=== PATIENT | female | born 1960 | race Caucasian/White ===

== ENCOUNTER 2019-07-09 12:24 | Outpatient (RCR) | payer MEDICARE ==
[~2019-07-09] VITALS: Ht 165.1 cm; Wt 84.5 kg
[2019-07-09] MEDS ORDERED: VITA200028 PO (12:52)
[2019-07-09] MEDS ORDERED: MELA10CA PO (12:52)
[2019-07-09] MEDS ORDERED: LISI10TA4 PO (12:52)
[2019-07-09] MEDS ORDERED: PANT40TA3 PO (12:52)
[2019-07-09] MEDS ORDERED: MULTCAP PO (12:52)
[2019-07-09] MEDS ORDERED: METO25TA4 PO (12:52)
[2019-07-09] MEDS ORDERED: METF-839 PO (12:52)
[2019-07-09] MEDS ORDERED: ROSU20TA5 PO (12:52)
[2019-07-09] MEDS ORDERED: ASPI81TA85 PO (12:52)
[2019-07-09 13:44] VITALS: BP 120/76
[2019-07-09 13:45] VITALS: BP 120/76
[2019-07-09 13:52] VITALS: BP 120/76
--- NOTE | 2019-07-09 14:05 | CARECAPL ---
Assessment Account #s: Initial Assessment General Diagnoses: STEMI Date of event: Jun 09, 2019 Physician: Julio Summers Allergies: Coded Allergies: No Known Allergies (Verified , 12/19/04) Date Entered Program: Jul 09, 2019 Risk strat for cardiac event: Moderate Exercise Date: Jul 09, 2019 Assessment: Initial Assessment Stages of change: Contemplate Exercise Prescription Plan to build endurance and strength through a monitored exercise program and to be educated about the risks of cardiac disease Duration (Minutes) 30 - 60 minutes total exercise a day. 15 - 20 work intervals in minutes. PRN rest intervals in minutes. Functional Capacity Goal Sustained Metabolic Equivalent of a task (MET) goal of 2.5-3.5 for 15 minutes. Intensity: 3-Moderate Progression (METS) Increase by: .5 METS every: 2-3 sessions Angina with ex: No Target Heart Rate Rest +35-40 Resistance Training: Yes Weight (pounds): 1 Reps: 6-8 Medications Scheduled Aspirin (Aspir 81), 81 MG PO DAILY, (Reported) Ergocalciferol (Vitamin D2) (Vitamin D2), 2,000 UNIT PO DAILY, (Reported) Lisinopril (Lisinopril), 10 MG PO DAILY, (Reported) Melatonin (Melatonin), 10 MG PO QHS, (Reported) Metformin HCl (Metformin HCl), 500 MG PO BID, (Reported) Metoprolol Tartrate (Metoprolol Tartrate), 25 MG PO BID, (Reported) Multivitamin (Multivitamins), 1 CAP PO DAILY, (Reported) Pantoprazole Sodium (Pantoprazole Sodium), 40 MG PO DAILY, (Reported) Rosuvastatin Calcium (Rosuvastatin Calcium), 20 MG PO Q2D, (Reported) Current BP 120/76 Target Goals Individual exercise Rx (1) BP 140/90 or 130/80 if DM or CKD (1) Aerobic active 30+min 5 days per week (1) Nutrition Date: Jul 09, 2019 Assessment: Initial Assessment Stages of change: Contemplate Lipid- med/supplement Rosuvastatin Diabetes Diabetes: Yes (type II) HbA1c (%): 5.9 Diabetes medication Metformin Monitor Blood Sugar at home: No Weight Management Weight (lbs): 185 Height (inches): 65 Waist Circumference (Inches): 40 BMI: 30.8 Weight goal: 150 Special Diet: regular Vitamin/Supplements: Multivitamin Alcohol: special Diet Access Tool: Rate your plate Score: 55 Intervention Diet Class: Yes (will see this program) Target goal LDL-C<100 if triglycerides are >200 Non-HDL-C should be <130 (1) LDL-C<70 for high risk patients (4) HbA1c<7% (1) BMI<25 Waist cir<40in M/<35in F (1) Education Date: Jul 09, 2019 Assessment: Initial Assessment Learning Barriers: ready, learn Knowledge Test Score: 10 Stages of change: Preperation Quit: never smoked Intervention Referral to smoking cessation: No Individual education and couns: No Tobacco Adjunct: No Target Goals Complete cessation of tobacco use (1). Psychosocial Date: Jul 09, 2019 Assessment: Initial Assessment Psych Test (Initial/Discharge) Tool Used: Other Score: 9 Stages of change: Preperation Intervention Physician Consult: No Physician Referral: No Target Goal Assess presence or absence of depression using a valid screening tool (1). Maximize coping skills (2). Positive support system (2). Patient/Program Goal Preventative Medication: Yes Aspirin, Yes Beta blockade, Yes Statin/OTR lipid Lowering Fall Risk Assess: No Provider Assessment Provider Assessment: Proceed with rehab Klaudia Mcgraw RN Jul 09, 2019 14:05
[2019-07-12 12:59] VITALS: BP 146/80
[2019-07-12 13:40] VITALS: BP 180/90
[2019-07-12 14:13] VITALS: BP_SYST 146; BP_SYST 180; BP_DIAS 80; BP_DIAS 90
[2019-07-14 12:37] VITALS: BP 114/80
[2019-07-14 13:03] VITALS: BP 140/60
[2019-07-14 13:51] VITALS: BP 114/60
[2019-07-15 09:36] VITALS: BP 120/80
[2019-07-15 10:04] VITALS: BP 120/70
[2019-07-15 10:51] VITALS: BP 128/78
--- NOTE | 2019-07-16 13:42 | CARECAPL ---
General Allergies: Coded Allergies: No Known Allergies (Verified , 12/19/04) Exercise Prescription Duration (Minutes) 30 - 60 minutes total exercise a day. 15 - 20 work intervals in minutes. PRN rest intervals in minutes. Functional Capacity Goal Sustained Metabolic Equivalent of a task (MET) goal of for minutes. Progression (METS) Increase by: METS every: sessions Medications Scheduled Aspirin (Aspir 81), 81 MG PO DAILY, (Reported) Ergocalciferol (Vitamin D2) (Vitamin D2), 2,000 UNIT PO DAILY, (Reported) Lisinopril (Lisinopril), 10 MG PO DAILY, (Reported) Melatonin (Melatonin), 10 MG PO QHS, (Reported) Metformin HCl (Metformin HCl), 500 MG PO BID, (Reported) Metoprolol Tartrate (Metoprolol Tartrate), 25 MG PO BID, (Reported) Multivitamin (Multivitamins), 1 CAP PO DAILY, (Reported) Pantoprazole Sodium (Pantoprazole Sodium), 40 MG PO DAILY, (Reported) Rosuvastatin Calcium (Rosuvastatin Calcium), 20 MG PO Q2D, (Reported) Target Goals Individual exercise Rx (1) BP 140/90 or 130/80 if DM or CKD (1) Aerobic active 30+min 5 days per week (1) Target goal LDL-C<100 if triglycerides are >200 Non-HDL-C should be <130 (1) LDL-C<70 for high risk patients (4) HbA1c<7% (1) BMI<25 Waist cir<40in M/<35in F (1) Target Goals Complete cessation of tobacco use (1). Psychosocial Date: Jul 16, 2019 Target Goal Assess presence or absence of depression using a valid screening tool (1). Maximize coping skills (2). Positive support system (2). Provider Assessment Provider Assessment: No changes (cardiac rehab program closed d/t covid 19. pt account put on hold) Klaudia Mcgraw RN Jul 16, 2019 13:42
== END 2019-07-27 ==
LOC: M CR 12:24
PROVIDERS: ATTEND Internal Medicine
DX: I21.3 ST elevation (STEMI) myocardial infarction of unspecified site (principal)

== ENCOUNTER → 2020-07-13 | Outpatient (CLI) | payer MEDICARE ==
[~2020-07-13] MED LIST: ASPI81TA86 PO; LISI10TA22 PO; MELA10CA PO; METF-839 PO; METO25TA4 PO; MULTCAP PO; PANT40TA29 PO; ROSU20TA5 PO; VITA200028 PO
--- NOTE | 2020-07-13 16:15 | REP ---
INDICATION: PAIN AND SWELLING OF RIGHT LEG. COMPARISON: None. TECHNIQUE: Duplex ultrasound of the right lower extremity veins. FINDINGS: The deep veins of the right lower extremity demonstrate normal compression, normal Doppler color flow and normal Doppler waveforms with respiration and augmentation at multiple levels from the popliteal vein to the common femoral vein. IMPRESSION: There is no right lower extremity deep vein thrombus. <Electronically signed by Yury Fuller > 07/13/20 [id number]
== END ==
LOC: M RAD 15:25
PROVIDERS: ATTEND Physician Assistant
DX: M79.604 Pain in right leg (principal)